=== PATIENT | female | born 1990 | race Caucasian/White ===

== ENCOUNTER 2018-10-16 13:38 | Emergency (ER) | payer OTHER ==
[~2018-10-16] VITALS: Ht 157.5 cm; Wt 45.4 kg
--- NOTE | 2018-10-16 13:44 | NUR ---
PT AMBULATES TO BED 7
[2018-10-16 13:45] VITALS: BP 151/92
--- NOTE | 2018-10-16 13:53 | NUR ---
BIB MOTHER WITH C/O SOB TODAY; WAS SEEN AT AN [facility]RG[facility] FOR BRON[facility]IS ON 10/12/2018, 100% ON RA, BILAT CONGESTION IN BASES. DENIES CP/NVD/FEVERS. HX; BRONCHITIS RX; ALBUTEROL INHALER, "ANTIBIOTICS"
--- NOTE | 2018-10-16 14:08 | NUR ---
Patient being evaluated by physician at bedside.
[2018-10-16] MEDS ORDERED: LORazepam 2 MG/ML VIAL IM ONE (14:25)
--- NOTE | 2018-10-16 14:30 | NUR ---
PT ON BED IN H[place], E/U RESPIS, ON MONITOR, DENIES COMPLAINTS.
[2018-10-16 15:21] VITALS: BP 125/75
--- NOTE | 2018-10-16 15:21 | NUR ---
Patient discharged with v/s stable. Written and verbal after care instructions given and explained. Patient alert, oriented and verbalized understanding of instructions. Ambulatory with steady gait. All questions addressed prior to discharge. ID band removed. Patient advised to follow up with PMD. Rx of CLARITIN given. Patient educated on indication of medication including possible reaction and side effects. Opportunity to ask questions provided and answered.
== END 2018-10-16 15:21 | disposition home or self-care (01) ==
LOC: MED 13:38
DX: J30.9 Allergic rhinitis, unspecified (principal); R06.4 Hyperventilation
CPT/HCPCS: 96372; 99283; J2060